=== PATIENT | male | born 1985 | race Caucasian/White ===

== ENCOUNTER 2017-03-03 21:11 | Emergency (ER) | payer OTHER ==
--- NOTE | 2017-03-03 21:29 | EDPHY ---
H & P Stated Complaint: bit by a bat on the left lower leg 20 min ago Time Seen by Provider: 03/03/17 21:28 - Personal History Current Tetanus Diphtheria and Acellular Pertussis (TDAP): Yes Tetanus Vaccine Date: 2015 - Medical/Surgical History Hx Asthma: Yes Hx Chronic Respiratory Disease: No Hx Diabetes: No Hx Cardiac Disease: No Hx Renal Disease: No Hx Cirrhosis: No Hx Alcoholism: No Hx HIV/AIDS: No Hx Splenectomy or Spleen Trauma: No Other PMH: wrist surgery, sinus surgery, WPW- ablation - Social History Smoking Status: Never smoked Constitutional: Initial Vital Signs Temperature (C) 36.3 C 03/03/17 21:14 Heart Rate 54 L 03/03/17 21:14 Respiratory Rate 14 03/03/17 21:14 Blood Pressure 120/76 03/03/17 21:14 O2 Sat (%) 95 03/03/17 21:14 O2 Delivery Mode Room Air Allergies/Adverse Reactions: No Known Allergies Allergy (Unverified 03/03/17 21:13) Home Medications: Medication Instructions Recorded NK [No Known Home Meds] 03/03/17 Medical Decision Making ED Course/Re-evaluation: CHIEF COMPLAINT: Bitten by bat HISTORY OF PRESENT ILLNESS: This patient is a 31 year old male presenting following a bat bite to his left lower leg 20 minutes prior to arrival. He was in a shed and felt something on his foot, and saw a bat on his leg. It bit him, and he shook it off and it continued to crawl along the ground. He cleaned the wound with soap and water. He describes the site as a small puncture. No fever, chills, vomiting, or other associated symptoms. REVIEW OF SYSTEMS: A 10 point review of systems was performed and is negative with the exception of the elements mentioned in the history of present illness. PHYSICAL EXAM: HR, BP, O2 Sat, RR. Temp noted General Appearance: Alert, well hydrated, appropriate, and non-toxic appearing. Head: Atraumatic without scalp tenderness or obvious injury Eyes: Pupils equal, round, reactive to light and accommodation, EOMI, no trauma , no injection. Ears: Clear bilaterally, no perforation, normal landmarks Nose: Atraumatic, no rhinorrhea, clear. Throat: There is no erythema or exudates, no lesions, normal tonsils, mucus membranes moist. Neck: Supple, nontender, no lymphadenopathy. Respiratory: No retractions, no distress, no wheezes, and no accessory muscle use. Lungs are clear to auscultation bilaterally. Cardiovascular: Regular rate and rhythm, no murmurs, rubs, or gallops. Good capillary refill all extremities. Gastrointestinal: Abdomen is soft, nontender, non-distended, no masses, no rebound, no guarding, no peritoneal signs. Musculoskeletal: Normal active ROM of all extremities, atraumatic. Neurological: Alert, appropriate, and interactive. Nonfocal neuro exam. Skin: Small puncture wound to distal lateral aspect of left lower extremity. No rashes, good turgor, no nodules on palpation. Past medical history: Dzerd-Htafzrzel-Nbmso Syndrome Past surgical history: Wrist surgery, Sinus surgery, WPW- ablation Family history: Noncontributory Social history: . at bedside. DIFFERENTIAL DIAGNOSIS: Patient presents for rabies prophylaxis following bat bite. MEDICAL DECISION [id number] year old immunocompetent male presents following a bat bite shortly prior to arrival. Plan to administer first step of rabies vaccine. Administered 2.5 units IM RabAvert and 1600 units IM Rabies Immune Globulin. Plan to discharge home in good condition. He will follow up with primary care or alternate service for continued rabies prophylaxis. Resources and repeat vaccination dates discussed. Return precautions discussed. The patient is comfortable with this plan. Departure - Departure Disposition: Home, Routine, Self-Care Clinical Impression: Bat bite wound Condition: Good Instructions: Rabies Vaccine (By injection), Rabies Immune Globulin (By injection), Rabies (ED), Rabies Vaccine (ED) Additional Instructions: 1. Follow up with your primary care provider for the rest of your vaccinations. We have given you some resources to contact so you can be sure to stay on schedule. 2. Return to the Emergency Department for increased redness, swelling, heat, or discharge in the area of your bite. Vaccine Schedule: Today, 03/03/17. This will be administered here in the Emergency Department. Day 3, 03/06/17 Day 7, 03/10/17 Day 14, 03/17/17 Referrals: [facility] (ED,. [Edm Groups for Call Sched] - As per Instructions [facility],. [Clinic] - As per Instructions Health, Passport [Other] - As per Instructions Report Scribed for: Tony Hall Report Scribed by: Mitali Rocha Date of Report: 03/03/17 Time of Report: 21:38
[2017-03-03] MEDS ORDERED: RABIES VACC, HUMAN DIPLOID/PF 2.5 UNIT VIAL (RABAVERT) IM ONE (21:41)
[2017-03-03] MEDS ORDERED: RABIES IMMUNE GLOBULIN 300 UNIT/2 ML VIAL IM ONE (21:41)
[2017-03-03] MEDS ORDERED: RABIES IMMUNE GLOBULIN 150 UNIT/ML 10 ML VIAL IM ONE (22:00)
[2017-03-03 23:22] VITALS: BP 113/66; PULSE 60; RESP 18; TEMP 98.4; O2SAT 97
== END 2017-03-03 23:20 | disposition home or self-care (01) ==
DX: S81.852A Open bite, left lower leg, initial encounter (principal); J45.909 Unspecified asthma, uncomplicated; Z23 Encounter for immunization; W55.81XA Bitten by other mammals, initial encounter